=== PATIENT | female | born 1985 | race Two or more races ===

== ENCOUNTER 2019-09-11 12:00 | Emergency (ER) | payer OTHER ==
[~2019-09-11] VITALS: Ht 165.1 cm; Wt 70.3 kg
--- NOTE | 2019-09-11 13:10 | NUR ---
BIBS TO ER BED 13. AAOX4. NOT IN RESP DISTRESS. AMBULATORY. CAME IN FOR ACCIDENTAL INGESTION OF A 1 TAB BORIC ACID 600MG VAGINAL SUPPOSITORY. DENIES ABDOMINAL PAIN, DENIES NVD. MD AT BEDSIDE FOR EVAL.
--- NOTE | 2019-09-11 13:13 | NUR ---
CALLED POISON CONTROL, SPOKE TO INGE REGARDING PATIENT AND DR AMOS ALSO TALKED TO POISON CONTROL REP FOR RECOMENDATION.
--- NOTE | 2019-09-11 13:51 | NUR ---
Patient discharged to home in stable condition. Written and verbal after care instructions given. Patient verbalizes understanding of instruction. Pt ambulatory with a steady gait
[2019-09-11 14:00] VITALS: BP 128/75
== END 2019-09-11 14:00 | disposition home or self-care (01) ==
LOC: ER 12:05
DX: T49.0X1A Poisoning by local antifungal, anti-infective and anti-inflammatory drugs, accidental (unintentional), initial encounter (principal); Z90.49 Acquired absence of other specified parts of digestive tract; Z90.89 Acquired absence of other organs; Z60.2 Problems related to living alone; Y92.89 Other specified places as the place of occurrence of the external cause